=== PATIENT | female | born 1945 | race Two or more races ===

== ENCOUNTER 2024-06-02 04:27 | Inpatient (IN) | payer OTHER ==
[~2024-06-02] VITALS: Ht 160 cm; Wt 61.4 kg
[2024-06-02 07:30] VITALS: BP 157/61; PULSE 61; RESP 18; TEMP 97.8; O2SAT 97
[2024-06-02] MEDS ORDERED: ALLO100T PO (08:27)
[2024-06-02] MEDS ORDERED: CITA-77 PO (08:27)
[2024-06-02] MEDS ORDERED: GAB100C PO (08:27)
[2024-06-02] MEDS ORDERED: CARV3.1240 PO (08:27)
[2024-06-02] MEDS ORDERED: [UNRECOGNIZED DRUG - CODE] PO (08:27)
[2024-06-02 09:12] VITALS: BP 157/61; PULSE 61; RESP 18; TEMP 97.8; O2SAT 97
[2024-06-02 09:27] LABS: Basophils # (auto) 0 10 ^3/uL (0-0.2); Basophils % (auto) 0.7 % (0.0-2.0); Eosinophils # (auto) 0.1 10 ^3/uL (0-0.8); Eosinophils % (auto) 1.4 % (0.0-7.0); Hematocrit 38.3 % (36.0-46.0); Lymphocytes # (auto) 1.2 10 ^3/uL (0.4-5.4); Lymphocytes % (auto) 24.5 % (10.0-50.0); Mean Corpuscular Hemoglobin 32.8 pg (28.0-32.0); Mean Corpuscular Volume 96.4 fL (80.0-100.0); Monocytes # (auto) 0.6 10 ^3/uL (0-1.3); Monocytes % (auto) 11.9 % (0.0-12.0); Neutrophils # (auto) 3.1 10 ^3/uL (1.6-8.6); Neutrophils % (auto) 61.5 % (37.0-80.0); Nucleated Red Blood Cells % 0.1 %; Platelet Count (auto) 149 10^3/uL (140-450); Red Blood Cells 3.97 10^6/uL (4.0-5.20); Red Cell Distribution Width 14.2 % (11.8-14.3)
[2024-06-02 09:49] LABS: Alanine Aminotransferase 11 U/L (7-40); Albumin 3.5 g/dL (3.2-4.8); Alkaline Phosphatase 76 U/L (46-116); Anion Gap 6 (5-15); Aspartate Aminotransferase 18 U/L (13-40); BUN/Creatinine Ratio 13.3 (10.0-20.0); Blood Urea Nitrogen 8 mg/dL (9-23); Carbon Dioxide 25 mmol/L (20-31); Chloride 107 mmol/L (98-107); Glucose 93 mg/dL (74-106); Potassium 3.7 mmol/L (3.5-5.1); Sodium 138 mmol/L (136-145); Total Protein 5.6 g/dL (5.7-8.2)
[2024-06-02 13:23] VITALS: BP 145/59; PULSE 62; RESP 18; TEMP 97.8; O2SAT 96
[2024-06-02 16:16] VITALS: BP 153/63; PULSE 63; RESP 18; TEMP 98.2; O2SAT 95
[2024-06-02 20:00] VITALS: RESP 17; O2SAT 97
[2024-06-02 21:00] VITALS: BP 164/83; PULSE 66; RESP 17; TEMP 97.7; O2SAT 98
[2024-06-02] MEDS: CARVEDILOL 3.125 MG TAB PO SCH (21:46)
[2024-06-02] MEDS: ATORVASTATIN 20 MG TAB PO SCH (21:47)
[2024-06-03] VITALS (9 sets, daily range): BP systolic 128–182; BP diastolic 62–77; PULSE 58–71; RESP 16–19; TEMP 97.6–99; O2SAT 95–100
[2024-06-03] MEDS: LORazepam 2MG/ML-1ML VIAL IV PRN (10:53)
[2024-06-03] MEDS: CARVEDILOL 3.125 MG TAB PO SCH (22:06)
[2024-06-04] VITALS (10 sets, daily range): BP systolic 89–164; BP diastolic 45–85; PULSE 16–76; RESP 16–19; TEMP 97.4–98.1; O2SAT 95–99
[2024-06-04] MEDS: ACETAMINOPHEN 325 MG TAB PO PRN (01:04)
[2024-06-04] MEDS: SODIUM CHLORIDE 0.9% 500 ML IV ONE (12:12)
[2024-06-05 00:44] VITALS: BP_SYST 124; BP_SYST 141; BP_SYST 152; BP_DIAS 49; BP_DIAS 69; BP_DIAS 70; PULSE 16; PULSE 54; TEMP 97.6; O2SAT 97
[2024-06-05 04:55] VITALS: BP 126/46; PULSE 16; PULSE 51; TEMP 97.3; O2SAT 95
[2024-06-05 08:00] VITALS: PULSE 52; PULSE 76; RESP 17; O2SAT 98
[2024-06-05 09:00] VITALS: BP 164/67; PULSE 57; RESP 17; TEMP 97.4; O2SAT 98
[2024-06-05 13:00] VITALS: BP 139/61; PULSE 55; RESP 17; O2SAT 99
== END 2024-06-05 17:25 | disposition home health service (06) | DRG 312 ==
LOC: TELE-EAST 07:48
PROVIDERS: ADMIT Internal Medicine; ATTEND Internal Medicine
DX: I95.1 Orthostatic hypotension (principal); G91.2 (Idiopathic) normal pressure hydrocephalus; F41.9 Anxiety disorder, unspecified; I10 Essential (primary) hypertension; M10.9 Gout, unspecified; I25.10 Atherosclerotic heart disease of native coronary artery without angina pectoris; M41.9 Scoliosis, unspecified; R26.9 Unspecified abnormalities of gait and mobility; Z79.899 Other long term (current) drug therapy
CPT/HCPCS: 36415; 70551; 72148; 80053; 85025; 97110; 97116; 97163; 97530; G0378